=== PATIENT | male | born 1950 | race Caucasian/White ===

== ENCOUNTER 2019-08-27 13:20 | Outpatient (CLI) | payer MEDICARE ==
[~2019-08-27] VITALS: Ht 185.4 cm; Wt 104.3 kg
[2019-08-28] MEDS ORDERED: STELARA90 MG/1 ML SQ (08:42)
[2019-08-28] MEDS ORDERED: MAGNESIUM OXID400 M1 ORAL (08:42)
[2019-08-28] MEDS ORDERED: FOLIC ACID1 MG ORAL (08:42)
[2019-08-28] MEDS ORDERED: LANTUS SOL100 UNIT/1 SUBQ (08:42)
[2019-08-28] MEDS ORDERED: MIRTAZAPINE45 MG ORAL (08:42)
[2019-08-28] MEDS ORDERED: LOSARTAN POTASS25 MG ORAL (08:42)
[2019-08-28] MEDS ORDERED: QUESTRAN POWDER4 GM ORAL (08:42)
[2019-08-28] MEDS ORDERED: FLONASE ALLERG9.9 ML NS (08:42)
[2019-08-28] MEDS ORDERED: OMEPRAZOLE40 M1 ORAL (08:42)
[2019-08-28] MEDS ORDERED: ERGOCALCIFEROL PO (08:42)
[2019-08-28] MEDS ORDERED: CLARITIN10 M2 ORAL (08:42)
[2019-08-28] MEDS ORDERED: ATORVASTATIN CA10 MG ORAL (08:42)
[2019-08-28] MEDS ORDERED: LOMOTIL TABLET1 EACH ORAL (08:42)
[2019-08-28] MEDS ORDERED: ASPIRIN EC81 MG ORAL (08:42)
--- NOTE | 2019-08-28 14:15 | Consultation ---
DATE OF CONSULTATION: 08/27/2019 NOTE: CANCELED DICTATION CONSULTING PHYSICIAN: Shaheen Bansal M.D. CHIEF COMPLAINT: Abdominal pain. HISTORY OF PRESENT ILLNESS: This is a 69-year-old male with numerous medical problems, apparently been suffering from abdominal pain. Some constipation and some diarrhea. Apparently, he has had endoscopies and colonoscopies by another GI physician in 2018. He was also diagnosed with SIBO at one point, was given antibiotics for that. He is here because of his symptoms that are persistent. PAST MEDICAL HISTORY: 1. History of colonic polyps. 2. GERD. Shaheen Bansal M.D. DR: DELPHINE JOB#: [id number] CC:
--- NOTE | 2019-08-28 17:45 | Consultation ---
DATE OF CONSULTATION: 08/27/2019 CONSULTING PHYSICIAN: Shaheen Bansal M.D. CHIEF COMPLAINT: Crohn disease. HISTORY OF PRESENT ILLNESS: This is a 69-year-old male with past history of Crohn disease, status post partial bowel resection. He is not exactly sure which part, but he states a part of his colon and part of his small intestine has been removed. He is currently on Stelara injections for his Crohn disease. He is here for complaint of abdominal pain, bloating, and combination of the constipation and diarrhea. Apparently, the patient at one point had a capsule endoscopy, the capsule was stuck and had to be removed surgically. PAST MEDICAL HISTORY: 1. History of Crohn disease. 2. Depression. 3. Diabetes. 4. Obesity. 5. Sciatica. 6. GERD. 7. Anemia. PAST SURGICAL HISTORY: 1. History of partial bowel resection for Crohn disease. 2. He had a surgery for capsule removal. 3. Right foot and knee surgeries. MEDICATIONS: Please see the long medication reconciliation list. FAMILY HISTORY: No family history of GI malignancies. SOCIAL HISTORY: The patient denies any alcohol usage, but he smokes about one and a half cigarettes per day. Denies any drug usage. ALLERGIES: To vitamin B12. REVIEW OF SYSTEMS: A 10-point review of systems was performed and positive for abdominal pain, constipation, diarrhea, and bloating. PHYSICAL EXAMINATION: VITAL SIGNS: Temperature 98.2, blood pressure is 130/73, pulse is 68, and respirations 20. HEENT: Normocephalic and atraumatic. Sclerae anicteric. NECK: Supple. No evidence of obvious lymphadenopathy. CARDIOVASCULAR: Regular rate and rhythm. Plus S1, S2. LUNGS: Clear to auscultation bilaterally. ABDOMEN: Positive bowel sounds. Soft and nontender. No rebound. No guarding. No peritoneal sign. EXTREMITIES: No cyanosis. No clubbing. No edema ASSESSMENT AND PLAN: This is 69-year-old male with Crohn disease, currently on Stelara. It seems to be symptom is coming from small intestine bacterial overgrowth given gas bloating. Given the patient had partial colectomy and partial small-bowel resection, he is definitely prone for having the small intestine bacterial overgrowth. The ideal medication will be Xifaxan, but given his insurance, most likely it will not cover Xifaxan. We are going to order Augmentin 875 mg twice a day for 10 days. The patient was recommended to take probiotics for . The patient was also offered to have a colonoscopy, but at this time, he is refusing. He states he is not going to probably able to go through the prep at this time given his mobility issues, so we are going to have him to be treated for SIBO, continue on his Stelara, and come back in the office in a month or so for followup. Shaheen Bansal M.D. DR: LUCIANO JOB#: [id number] CC:
== END 2019-08-27 15:20 | disposition home or self-care (01) ==
LOC: PAN 13:20
DX: K50.90 Crohn's disease, unspecified, without complications (principal)
CPT/HCPCS: G0463

== ENCOUNTER 2020-01-09 14:44 | Outpatient (CLI) | payer MEDICARE ==
[~2020-01-09 14:44] MED LIST: ASPIRIN EC81 MG ORAL; ATORVASTATIN CA10 MG ORAL; CLARITIN10 M2 ORAL; ERGOCALCIFEROL PO; FLONASE ALLERG9.9 ML NS; FOLIC ACID1 MG ORAL; LANTUS SOL100 UNIT/1 SUBQ; LOMOTIL TABLET1 EACH ORAL; LOSARTAN POTASS25 MG ORAL; MAGNESIUM OXID400 M1 ORAL; MIRTAZAPINE45 MG ORAL; OMEPRAZOLE40 M1 ORAL; QUESTRAN POWDER4 GM ORAL; STELARA90 MG/1 ML SQ
== END 2020-01-09 16:44 | disposition home or self-care (01) ==
DX: R19.7 Diarrhea, unspecified (principal); R10.9 Unspecified abdominal pain; Z90.49 Acquired absence of other specified parts of digestive tract; Z79.899 Other long term (current) drug therapy